=== PATIENT | female | born 1990 | race Caucasian/White ===

== ENCOUNTER 2023-05-05 14:24 | Inpatient (IN) ==
[2023-05-05] MEDS ORDERED: Al Hydrox/Mg Hydrox/Simet LIQ 30 ML UDC PO PRN (21:35)
[2023-05-05 22:48] LABS: ABS Basophils 0.1 10^3/uL (0.0-0.1); ABS Eosinophils 0.2 10^3/uL (0.0-0.5); ABS Lymphocytes 3.6 10^3/uL (1.0-4.8); ABS Monocytes 0.7 10^3/uL (0.0-0.9); ABS Neutrophils 5.5 10^3/uL (1.5-7.6); ABS Nucleated RBC 0.02 10^3/ul; Eosinophil % 2.2 %; Hemoglobin 13.9 g/dL (11.5-14.3); Lymphocyte % 35.3 %; Mean Corpuscular Hemoglobin 29.5 pg (27-33); Mean Corpuscular Hgb Conc 34.7 g/dL (31-36); Mean Corpuscular Volume 84.8 fL (80-97); Mean Platelet Volume 7.3 fL (7.5-11.2); Nucleated Red Blood Cells % 0.2 %/100WBC (0.0-0.8); Platelet Count 334 10^3/uL (150-450); Red Blood Count 4.72 10^6/uL (3.63-4.92); Red Cell Distribution Width 12.3 % (12-17); White Blood Count 10.2 10^3/uL (3.8-11.8)
[2023-05-05 23:05] LABS: ALT 16 U/L (7-52); AST 15 U/L (13-39); Albumin 3.2 g/dL (3.2-5.2); Alkaline Phosphatase 58 U/L (35-149); Anion Gap 7 mmol/L (2-16); Blood Urea Nitrogen 15 mg/dL (6-24); CO2 Carbon Dioxide 21 mmol/L (22-32); Calcium 8.6 mg/dL (8.6-10.3); Chloride 108 mmol/L (101-111); Creatinine, Serum 0.77 mg/dL (0.51-0.95); Globulin 3.3 g/dL (2-4); Glucose 91 mg/dL (70-100); Potassium 3.9 mmol/L (3.5-5.0); Sodium 136 mmol/L (135-145); Total Bilirubin 0.2 mg/dL (0.2-1.0); Total Protein 6.5 g/dL (6.4-8.9); eGFR CKD-EPI 106.4 (>60)
[2023-05-05 23:13] LABS: HCG Pregnancy < 0.60 mIU/mL
[2023-05-06] MEDS: Vitamin THERAPEUTIC TAB PO SCH (10:29)
[2023-05-06] MEDS: CARIPRAZINE 4.5 MG PO SCH (10:32)
[2023-05-06] MEDS ORDERED: buPROPion SR 100 mg TAB.SR PO ONE (17:00)
[2023-05-06] MEDS: Lisdexamfetamine 10 mg CAP(NF) PO SCH (19:11)
[2023-05-07 08:31] LABS: HDL Cholesterol 57.1 mg/dL
[2023-05-07] MEDS: buPROPion SR 100 mg TAB.SR PO SCH (10:23)
[2023-05-07] MEDS: Lisdexamfetamine 10 mg CAP(NF) PO SCH (10:24)
[2023-05-07] MEDS: CARIPRAZINE 4.5 MG PO SCH (10:26)
[2023-05-07] MEDS: Vitamin THERAPEUTIC TAB PO SCH (10:41)
[2023-05-08] MEDS: Lisdexamfetamine 10 mg CAP(NF) PO SCH (08:11)
[2023-05-08] MEDS: buPROPion SR 100 mg TAB.SR PO SCH (08:12)
[2023-05-08] MEDS: Vitamin THERAPEUTIC TAB PO SCH (08:18)
[2023-05-08] MEDS: CARIPRAZINE 4.5 MG PO SCH (08:18)
[2023-05-09] MEDS: Vitamin THERAPEUTIC TAB PO SCH (08:05)
[2023-05-09] MEDS: buPROPion SR 100 mg TAB.SR PO SCH (08:06)
[2023-05-09] MEDS: Lisdexamfetamine 10 mg CAP(NF) PO SCH (08:07)
[2023-05-09 08:39] VITALS: BP 98/66
[2023-05-09] MEDS: CARIPRAZINE 4.5 MG PO SCH (08:47)
== END 2023-05-09 11:49 | disposition home or self-care (01) | DRG 882 ==
LOC: ED 14:24 → EDHOLD 21:35 → BSU 23:40
PROVIDERS: ADMIT Psychiatry & Neurology Psychiatry; ATTEND Psychiatry & Neurology Psychiatry